=== PATIENT | female | born 1965 | race Caucasian/White ===

== ENCOUNTER 2023-03-08 07:39 | Day surgery (SDC) | payer OTHER, SELFPAY ==
--- NOTE | 2023-03-08 | PATH_ITS ---
[facility] Accession Number: [id number] No. of containers..01 Tissue . 01 Material submitted: . colon - DESCENDING COLON POLYP . 01 Diagnosis: Descending Colon Polyp, Biopsy: Tubular adenoma. [facility] 03/17/2023 1104 Local . 01 Electronically signed: . London Jacobs MD, PhD, Pathologist NPI- [id number] . 01 Gross description: . DESCENDING COLON POLYP: Received in formalin are 2 fragment(s) of corn[place], soft tissue measuring 0.2 x 0.2 x 0.2 cm to 0.5 x 0.2 x 0.2 cm submitted entirely in 1 cassette(s) /[facility] 03/14/2023 1915 Local . 01 Pathologist provided ICD-10: D12.4 . 01 CPT . 112223 Specimen Comment: A courtesy copy of this report has been sent to [phone] Performed at: 01 [facility] [address] [place] [address], [place], [place] [id number] MD Derek Duran MD Phone: [phone]
[2023-03-08] MEDS: LACTATED RINGERS 1,000 ML 42 ML IV (08:37)
[2023-03-08 08:45] VITALS: BP 127/71; PULSE 73; RESP 18; TEMP 35.8; O2SAT 95; BMI 42.0
--- NOTE | 2023-03-08 09:15 | P.HP_ITS ---
History of Present Illness History of Present Illness Date Patient Seen: 03/08/23 Time Patient Seen: 09:15 Chief complaint: Colonoscopy Narrative: First colonoscopy no family history of colon cancer. [facility] Social History household members: spouse Smoking Status: Never smoker alcohol intake: never Meds Home Medications and Allergies Home Medications Medication Instructions Recorded Confirmed Type atorvastatin 40 mg tablet 40 mg PO DAILY 03/08/23 03/08/23 History lisinopril 5 mg tablet 5 mg PO DAILY 03/08/23 03/08/23 History metoprolol tartrate 25 mg tablet 25 mg PO BID 03/08/23 03/08/23 History Allergies Allergy/AdvReac Type Severity Reaction Status Date / Time copper Allergy Blister Verified 03/08/23 08:33 lavender (Lavandula Allergy Difficulty Verified 03/08/23 08:33 angustifolia) Breathing metronidazole [From Flagyl] Allergy Blister Verified 03/08/23 08:33 nickel Allergy Blister Verified 03/08/23 08:33 Review of Systems Review of Systems ROS: Yes All systems reviewed with the patient and are negative except as otherwise documented Exam Vital Signs (past 8 hours): - 03/08/23 08:45 Temperature 96.5 F L Pulse Rate 73 Respiratory Rate 18 Blood Pressure 127/71 Pulse Oximetry 95 Oxygen Delivery Method Room Air Oxygen Delivery Method Room Air Const General: cooperative and healthy appearing Nutritional Appearance: overweight HENMT Head: normocephalic and atraumatic Eyes Sclera: sclerae normal Neck Neck: trachea midline Resp Effort & Inspection: normal respiratory effort and able to speak in complete sentences Cardio Rate: regular rate Rhythm: regular rhythm GI Palpation: soft and No tender Skin General: elasticity normal and turgor normal Neuro General: patient alert, patient awake and patient oriented x3 Cognition: normal cognition Psych Appearance: grossly normal Mental Status: mental status grossly normal Affect: normal affect Judgment: judgment good Assessment & Plan Assessment & Plan narrative: colon cancer screening using colonoscopy with anesthesia Time Spent With Patient Time with patient: less than 30 minutes
--- NOTE | 2023-03-08 09:18 | PM.OP.COLON ---
Operative Date/Time/Diagnoses Date of procedure: 03/08/23 Time of procedure: 09:18 Pre-op diagnosis: Colon cancer screening Post-op diagnosis: same Procedure & Clinicians Indications: Colon cancer screening Surgeon: Selena Warner Procedure Notes Procedure in detail: Preop diagnosis: Colon cancer screening Postop diagnosis: Same Operative procedure: Colonoscopy with cold forceps polypectomy Anesthetic: Propofol Surgeon: Milly Warner MD Findings small scant diverticuli in the descending colon, small 3 mm polyp in descending colon taken with cold forceps Procedure: Patient placed in a lateral position. Rectal exam performed showing normal tone no masses. Colonoscope inserted into the rectum and advanced to ileocecal valve with minimal difficulty. Insufflation extraction scope and the above findings. Retroflex was included in the rectum Impression: Scant small diverticuli of the descending colon, single small sessile polyp 3 mm in the descending colon. Plan: Repeat colonoscopy in 5 years if polyp pathology is adenomatous. Otherwise 10 year recall Findings: divertiulosis and polyp(s) (3 mm sessile polyp descending colon) Specimen(s): other (Polyp) Complications: none Post-procedure Recommendations: Colonoscopy in 5 years Follow up: as needed Disposition: PACU
[2023-03-08 09:36] VITALS: BP 102/54; PULSE 75; RESP 12; TEMP 36.4; O2SAT 95
[2023-03-08 09:41] VITALS: BP 113/61; PULSE 75; RESP 15; TEMP 36.4; O2SAT 95
[2023-03-08 09:45] VITALS: BP 118/65; PULSE 71; RESP 15; O2SAT 97
[2023-03-08 09:51] VITALS: BP 121/81; PULSE 73; RESP 16; O2SAT 96
== END 2023-03-08 09:57 | disposition home or self-care (01) ==
PROVIDERS: PCP Physician Assistant; Referring Provider Surgery; Visit Provider Surgery
PROC: 0DJD8ZZ Inspection of Lower Intestinal Tract, Via Natural or Artificial Opening Endoscopic (ICD-10-PCS; CPT 45378; principal; 2023-03-08 09:15)
DX: Z12.11 Encounter for screening for malignant neoplasm of colon (principal); K57.30 Diverticulosis of large intestine without perforation or abscess without bleeding; D12.4 Benign neoplasm of descending colon
CPT/HCPCS: 45380

== ENCOUNTER → 2023-04-10 08:18 | Outpatient (CLI) | payer OTHER, SELFPAY ==
--- NOTE | 2023-04-10 08:20 | DI.MG.S_ITS ---
BILATERAL DIGITAL SCREENING MAMMOGRAM 3D/2D WITH CAD: 04/10/2023 CLINICAL: Baseline exam. Routine screening. No prior exams were available for comparison. Both breasts are almost entirely fatty (category a/<25% glandular tissue). Current study was also evaluated with a Computer Aided Detection (CAD) system. No significant masses, calcifications, or other findings are seen in either breast. IMPRESSION: NEGATIVE There is no mammographic evidence of malignancy. A 1 year screening mammogram is recommended. Based on the Tyrer Cuzick model (a risk assessment model) the patient's lifetime risk is 3.6% and her 10 year risk is 1.3%. According to the ACR, ACS, and NCCN guidelines, an annual breast MRI exam along with mammogram is recommended if the patient's lifetime risk is 20% or greater. This exam was interpreted at Station ID: [id number]. NOTE: For mammograms, a report in lay terms will be sent to the patient. Approximately 15% of breast malignancies will not be visualized mammographically. In the management of a palpable breast mass, a negative mammogram must not discourage biopsy of a clinically suspicious lesion. Electronically Signed By: Cheyanne peña/maryam:04/10/2023 13:28:55 letter sent: Normal Exam ACR BI-RADS Category 1: Negative [id number]
== END ==
LOC: MAMMO 08:19
PROVIDERS: PCP Physician Assistant; Referring Provider Physician Assistant; Visit Provider Physician Assistant
DX: Z12.31 Encounter for screening mammogram for malignant neoplasm of breast (principal)
CPT/HCPCS: 77063; 77067

== ENCOUNTER → 2024-05-20 11:09 | Outpatient (CLI) | payer OTHER, SELFPAY ==
--- NOTE | 2024-05-20 11:10 | DI.MG.S_ITS ---
MM screening mammo BI: 05/20/2024. BI-RADS: 1 CLINICAL: 59-year old female for bilateral screening mammogram. Tyrer-Cuzick lifetime risk of 4.0%. No personal or first-degree family history of breast cancer. PRIOR EXAMS 04/10/2023. MAMMOGRAPHY TECHNIQUE: 2D and 3D (tomosynthesis) digital mammographic views obtained, with additional images as needed for full coverage. Current study was also evaluated with a Computer Aided Detection (CAD) system. DENSITY A. The breasts are almost entirely fatty. MAMMOGRAPHY FINDINGS Bilateral: No suspicious mass, asymmetry, microcalcification, or other abnormality seen. IMPRESSION: * No evidence of malignancy. RECOMMENDATIONS Bilateral * Annual screening mammography. OVERALL ASSESSMENT CATEGORY BI-RADS-1: Negative. The [employer] recommends annual screening mammography beginning at age 40 for women with average risk of breast cancer. ELECTRONICALLY SIGNED: Az Rodas M.D. on 05/20/2024 at 05:19:34 PM PT Interpreting Station ID: [id number]
== END ==
LOC: MAMMO 11:10
PROVIDERS: PCP Physician Assistant; Referring Provider Physician Assistant; Visit Provider Physician Assistant
DX: Z12.31 Encounter for screening mammogram for malignant neoplasm of breast (principal); R92.313 Mammographic fatty tissue density, bilateral breasts
CPT/HCPCS: 77063; 77067